=== PATIENT | male | born 1960 | race Native Hawaiian/Other Pacific Islander ===

== ENCOUNTER 2020-12-02 11:02 | Outpatient (CLI) | payer OTHER ==
[2020-12-02 11:34] LABS: POTASSIUM 4.9 mmol/L (3.6-5.2)
== END 2020-12-02 22:01 | disposition home or self-care (01) ==
LOC: LABW 11:02
PROVIDERS: ATTEND Internal Medicine Cardiovascular Disease
DX: Z79.899 Other long term (current) drug therapy (principal)
CPT/HCPCS: 36415; 80048

== ENCOUNTER 2020-12-09 11:25 | Outpatient (CLI) | payer OTHER ==
[2020-12-09 11:55] LABS: POTASSIUM 4.4 mmol/L (3.6-5.2)
== END 2020-12-09 22:43 | disposition home or self-care (01) ==
LOC: LABW 11:25
PROVIDERS: ATTEND Internal Medicine Cardiovascular Disease
DX: Z79.899 Other long term (current) drug therapy (principal)
CPT/HCPCS: 36415; 80048

== ENCOUNTER 2021-06-30 12:42 | Outpatient (CLI) | payer OTHER | END 2021-06-30 21:53 | disposition home or self-care (01) | LOC: LABW 12:42 | PROVIDERS: ATTEND Internal Medicine Cardiovascular Disease | DX: Z79.899 Other long term (current) drug therapy (principal) | CPT/HCPCS: 36415; 80048 ==

== ENCOUNTER 2023-04-05 09:53 | Outpatient (CLI) | payer OTHER ==
[2023-04-05 10:15] LABS: POTASSIUM 4.3 mmol/L (3.6-5.2)
== END 2023-04-05 21:02 | disposition home or self-care (01) ==
LOC: LABW 09:53
PROVIDERS: ATTEND Internal Medicine Cardiovascular Disease
DX: Z79.899 Other long term (current) drug therapy (principal); I50.9 Heart failure, unspecified
CPT/HCPCS: 36415; 80048; 83880